=== PATIENT | male | born 1990 | race Caucasian/White ===

== ENCOUNTER 2021-06-08 08:51 | Emergency (ER) | payer OTHER ==
[2021-06-08 11:47] LABS: BUN/CREATININE RATIO 15 (0-10)
[2021-06-08 11:50] LABS: HEMOGLOBIN 15.1 gm/dl (14.0-17.5); RED BLOOD COUNT 4.97 M/UL (4.20-5.50)
== END 2021-06-08 15:45 | disposition short-term general hospital (02) ==
LOC: ER1 08:51
PROVIDERS: Emergency Medicine
DX: F22 Delusional disorders (principal); F17.200 Nicotine dependence, unspecified, uncomplicated; Z20.822 Contact with and (suspected) exposure to COVID-19
CPT/HCPCS: 80053; 80307; 81001; 85025; 99285; G0480; U0002